=== PATIENT | male | born 1980 | race African-American/Black ===

== ENCOUNTER 2017-04-05 22:46 | Emergency (ER) | payer OTHER ==
[2017-04-05] MEDS ORDERED: SODIUM CHLORIDE 0.9% 500 ML IV STA (23:13)
[2017-04-05] MEDS ORDERED: ONDANSETRON 4 MG/2 ML VIAL IVP STA (23:13)
[2017-04-05 23:57] LABS: Basophils % (A) 0 %; CH 22.9; CHCM 31.3; Eosinophils # (A) 0.1 k/uL (0-0.7); Eosinophils % (A) 1 %; HCT 47.1 % (39.0-53.0); HDW 2.76; HGB 15.1 gm/dL (13.0-17.5); Hypochromasia Slight; Luc # (Auto) 0.15; Luc % (Auto) 2; Lymphocytes # (A) 2.2 k/uL (1.0-4.8); Lymphocytes % (A) 26 %; MCH 23.6 pg (25.0-35.0); MCV 73.8 fL (80.0-100.0); Mean Platelet Volume 6.2; Microcytosis Slight; Monocytes # (A) 0.5 k/uL (0-1.0); Monocytes % (A) 5 %; Neutrophils # (A) 5.5 k/uL (1.3-7.7); Neutrophils % (A) 65 %; RBC 6.39 m/uL (4.30-5.90); RDW 14.3 % (11.5-15.5); WBC 8.4 k/uL (3.8-10.6); WBC (Perox) 8.09
--- NOTE | 2017-04-06 00:11 | ED ---
General Adult HPI - General Chief complaint: Recheck/Abnormal Lab/Rx Stated complaint: Elevated B/P Time Seen by Provider: 04/05/17 22:55 Source: patient Mode of arrival: ambulatory Limitations: no limitations - History of Present Illness Initial comments: 36-year-old male patient presented to emergency department today for complaints of dizziness over the last few days. Patient states that whenever he goes from a sitting to standing position he becomes dizzy. States that the room spins for a moment. Patient states that he has had this in the past related to elevated blood pressure. Patient states that he hasn't had his blood pressure medications for the last few months. Says he has been nauseated and did vomit a few times today. States that he has had some blurred vision. Patient denies any headache, chest pain, shortness of breath, cough, congestion, abdominal pain , constipation, diarrhea, hematuria, dysuria, urinary urgency, urinary frequency. Denies any hematemesis, dark, bloody, or black stools. - Related Data Home Medications Medication Instructions Recorded Confirmed Lisinopril [Zestril] 5 mg PO DAILY 04/05/17 04/05/17 Previous Rx's Medication Instructions Recorded Meclizine HCl 25 mg PO Q8H #30 tablet 04/06/17 Allergies Allergy/AdvReac Type Severity Reaction Status Date / Time No Known Allergies Allergy Verified 04/05/17 22:50 Review of Systems ROS Statement: Those systems with pertinent positive or pertinent negative responses have been documented in the HPI. ROS Other: All systems not noted in ROS Statement are negative. Past Medical History Past Medical History: Asthma, Hypertension History of Any Multi-Drug Resistant Organisms: None Reported Past Surgical History: Orthopedic Surgery Past Psychological History: No Psychological Hx Reported Smoking Status: Current every day smoker Past Alcohol Use History: Occasional Past Drug Use History: None Reported General Exam Limitations: no limitations General appearance: alert, in no apparent distress Head exam: Present: atraumatic, normocephalic, normal inspection Eye exam: Present: normal appearance, PERRL, EOMI. Absent: scleral icterus, conjunctival injection, periorbital swelling ENT exam: Present: normal exam, normal oropharynx, mucous membranes moist Respiratory exam: Present: normal lung sounds bilaterally. Absent: respiratory distress, wheezes, rales, rhonchi, stridor Cardiovascular Exam: Present: regular rate, normal rhythm, normal heart sounds. Absent: systolic murmur, diastolic murmur, rubs, gallop, clicks GI/Abdominal exam: Present: soft, normal bowel sounds. Absent: distended, tenderness, guarding, rebound, rigid Neurological exam: Present: alert, oriented X3, CN II-XII intact Psychiatric exam: Present: normal affect, normal mood Skin exam: Present: warm, dry, intact, normal color. Absent: rash Course Vital Signs 04/05/17 04/06/17 04/06/17 22:48 00:01 00:48 Temperature 98.9 F Pulse Rate 105 H 68 Respiratory 18 16 Rate Blood Pressure 134/83 132/65 Blood Pressure [Sitting] Blood Pressure [Standing] Blood Pressure 142/66 [Supine] O2 Sat by Pulse 98 98 Oximetry 04/06/17 04/06/17 00:49 01:08 Temperature 98.0 F Pulse Rate 80 Respiratory 17 Rate Blood Pressure 153/80 Blood Pressure 144/70 [Sitting] Blood Pressure 144/73 [Standing] Blood Pressure 142/66 [Supine] O2 Sat by Pulse 98 Oximetry EKG Findings - EKG Comments: EKG Findings:: EKG was obtained at 2322 and did show normal sinus rhythm with a rightward axis. Ventricular rate 80, NJ interval 166, QRS duration 82, QT 346, QTC 399. No evidence of ST elevation or depression. Medical Decision Making - Medical Decision Making 36-year-old male patient presents to emergency department today for complaints of dizziness. Labs and EKG were performed and did show no acute abnormalities. Orthostatic vital signs were obtained and were negative. Patient was given IV fluids and meclizine in the department states that he is feeling better. Did question patient regarding family history of any intracranial processes, he denied any history of stroke, aneurysm, or cancers. He states he has been having difficulties with ALLERGIES and ear fullness. Patient was also concerned about his blood pressure as he has not been taking his blood pressure medications. Blood pressure while in the department remained in the 130s over 60s. Patient will be discharged home with a prescription for meclizine. Patient instructed to follow up with his primary care physician for recheck in 1 -2 days. Patient instructed to return immediately for any new, worsening, or concerning symptoms. Patient verbalizes understanding and agrees with this plan. - Lab Data Result diagrams: 04/05/17 23:39 04/05/17 23:39 Lab Results 04/05/17 04/05/17 Range/Units 23:39 23:39 WBC 8.4 (3.8-10.6) k/uL RBC 6.39 H (4.30-5.90) m/uL Hgb 15.1 (13.0-17.5) gm/dL Hct 47.1 (39.0-53.0) % MCV 73.8 L (80.0-100.0) fL MCH 23.6 L (25.0-35.0) pg MCHC 32.0 (31.0-37.0) g/dL RDW 14.3 (11.5-15.5) % Plt Count 287 (150-450) k/uL Neutrophils % 65 % Lymphocytes % 26 % Monocytes % 5 % Eosinophils % 1 % Basophils % 0 % Neutrophils # 5.5 (1.3-7.7) k/uL Lymphocytes # 2.2 (1.0-4.8) k/uL Monocytes # 0.5 (0-1.0) k/uL Eosinophils # 0.1 (0-0.7) k/uL Basophils # 0.0 (0-0.2) k/uL Hypochromasia Slight Microcytosis Slight Sodium 138 (137-145) mmol/L Potassium 4.6 (3.5-5.1) mmol/L Chloride 104 (98-107) mmol/L Carbon Dioxide 25 (22-30) mmol/L Anion Gap 9 mmol/L BUN 14 (9-20) mg/dL Creatinine 1.00 (0.66-1.25) mg/dL Est GFR (MDRD) Af Amer >60 (>60 ml/min/1.73 sqM) Est GFR (MDRD) Non-Af >60 (>60 ml/min/1.73 sqM) Glucose 89 (74-99) mg/dL Calcium 9.8 (8.4-10.2) mg/dL Magnesium 2.0 (1.6-2.3) mg/dL Total Bilirubin 0.4 (0.2-1.3) mg/dL AST 23 (17-59) U/L ALT 27 (21-72) U/L Alkaline Phosphatase 69 (38-126) U/L Total Protein 7.7 (6.3-8.2) g/dL Albumin 4.6 (3.5-5.0) g/dL Disposition Clinical Impression: Dizziness, Vertigo Disposition: HOME SELF-CARE Condition: Good Instructions: Vertigo (ED) Additional Instructions: Take medications as directed. Take [id number]-ctvulax decongestions and ALLERGY medication. Increase fluids. Follow-up with primary care physician for recheck in 1-2 days. Return immediately for any new, worsening, or concerning symptoms. Prescriptions: Meclizine HCl 25 mg PO Q8H #30 tablet Referrals: Kin Mar MD [Primary Care Provider] - 1-2 days Time of Disposition: 00:43
[2017-04-06 00:14] LABS: ALT 27 U/L (21-72); AST 23 U/L (17-59); Alkaline Phosphatase 69 U/L (38-126); Anion Gap 9 mmol/L; Blood Urea Nitrogen 14 mg/dL (9-20); Calcium 9.8 mg/dL (8.4-10.2); Carbon Dioxide 25 mmol/L (22-30); Chloride 104 mmol/L (98-107); Glucose 89 mg/dL (74-99); Non-African American GFR(MDRD) >60 (>60 ml/min/1.73 sqM); Potassium 4.6 mmol/L (3.5-5.1); Sodium 138 mmol/L (137-145); Total Bilirubin 0.4 mg/dL (0.2-1.3); Total Protein 7.7 g/dL (6.3-8.2)
[2017-04-06] MEDS ORDERED: MECLIZINE 12.5 MG TAB PO STA (00:44)
[2017-04-06 01:10] VITALS: BP 153/80; PULSE 80; RESP 17; TEMP 98
== END 2017-04-06 01:10 | disposition home or self-care (01) ==
LOC: EC 22:46
DX: R42 Dizziness and giddiness (principal); R11.0 Nausea; I10 Essential (primary) hypertension; F17.200 Nicotine dependence, unspecified, uncomplicated; Z79.899 Other long term (current) drug therapy
CPT/HCPCS: 99283; 96374; 36415; 93005; 80053; 83735; 85025; J2405

== ENCOUNTER 2017-05-18 23:43 | Emergency (ER) | payer OTHER ==
[2017-05-18 23:49] VITALS: BP 130/81; PULSE 87; RESP 19; TEMP 99
[2017-05-18] MEDS ORDERED: DIPH,PERTUS(ACELL)TETVAC-LF 0.5 ML VIAL IM ONE (23:54)
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
== END 2017-05-19 01:50 | disposition home or self-care (01) ==
LOC: EC 23:43
DX: S01.01XA Laceration without foreign body of scalp, initial encounter (principal); I10 Essential (primary) hypertension; F17.200 Nicotine dependence, unspecified, uncomplicated; Z23 Encounter for immunization; Z79.899 Other long term (current) drug therapy; W22.8XXA Striking against or struck by other objects, initial encounter
CPT/HCPCS: 12002; 70450; 90471; 90715; 99284

== ENCOUNTER 2017-12-18 14:30 | Emergency (ER) | payer OTHER ==
[2017-12-18 15:16] VITALS: RESP 18
[2017-12-18] MEDS ORDERED: IPRATROPIUM-ALBUTEROL 3 ML NEB INHALATION STA (15:39)
--- NOTE | 2017-12-18 15:42 | ED ---
SOB HPI - General Chief Complaint: Shortness of Breath Stated Complaint: asthma Time Seen by Provider: 12/18/17 15:33 Source: patient, RN notes reviewed Mode of arrival: ambulatory Limitations: no limitations - History of Present Illness Initial Comments: This is a 37-year-old male who presents to the emergency department with chief complaint of asthma attack. Patient states that he has been having some shortness of breath and cough for the past couple of days. He states that his symptoms have worsened today and he is unable to find his albuterol inhaler. Denies any fevers or chills. Denies any chest pain, abdominal pain, nausea or vomiting, diarrhea or constipation. Patient does not take any daily asthma medications. He does not have any nebulizer treatments at home. - Related Data Home Medications Medication Instructions Recorded Confirmed Lisinopril [Zestril] 5 mg PO DAILY 04/05/17 04/05/17 Previous Rx's Medication Instructions Recorded Meclizine HCl 25 mg PO Q8H #30 tablet 04/06/17 Albuterol Inhaler [Ventolin Hfa 1 - 2 puff INHALATION Q6HR PRN #1 12/18/17 Inhaler] inhaler Allergies Allergy/AdvReac Type Severity Reaction Status Date / Time No Known Allergies Allergy Verified 12/18/17 15:16 Review of Systems ROS Statement: Those systems with pertinent positive or pertinent negative responses have been documented in the HPI. ROS Other: All systems not noted in ROS Statement are negative. Past Medical History Past Medical History: Asthma, Hypertension History of Any Multi-Drug Resistant Organisms: None Reported Past Surgical History: Orthopedic Surgery Past Psychological History: No Psychological Hx Reported Smoking Status: Current every day smoker Past Alcohol Use History: Occasional Past Drug Use History: None Reported General Exam - General Exam Comments Initial Comments: General: Awake and alert, well-developed; in no apparent distress. HEENT: Head atraumatic, normocephalic. Pupils are equal, round and reactive to light. Extraocular movements intact. Oropharynx moist without erythema or exudate. Neck: Supple. Normal ROM. Cardiovascular: Regular rate and rhythm. No murmurs, rubs or gallops. Chest symmetrical. Respiratory: Normal respiratory effort with no use of accessory muscles. Diffuse wheezes throughout all lung gerard. Diminished breath sounds throughout. Musculoskeletal: Normal ROM, no tenderness bilateral upper and lower extremities. Ambulating normally. Skin: Lyndon, warm and dry without rashes or lesions. Neurological: Alert and oriented x3. CN II-XII grossly intact. Speech is fluent and answers are appropriate. No focal neuro deficits. Psychiatric: Normal mood and affect. No overt signs of depression or anxiety noted. Limitations: no limitations Course Vital Signs 12/18/17 12/18/17 12/18/17 15:14 15:55 16:07 Temperature 98.1 F Pulse Rate 77 78 80 Respiratory 18 Rate Blood Pressure 156/88 O2 Sat by Pulse 99 Oximetry - Reevaluation(s) Reevaluation #1: Patient just finished DuoNeb treatment. Lung sounds have improved and there is no more wheezing on auscultation bilaterally. Pending chest x-ray. 12/18/17 16:15 Medical Decision Making - Medical Decision Making This is a 37-year-old male who presents to the emergency department with chief complaint of asthma attack. Patient states that he has had a cough and some shortness of breath for the last couple of days but symptoms have worsened today. Patient received a DuoNeb breathing treatment and lung sounds have improved. Chest x-ray was obtained and revealed no acute abnormalities. Patient's vital signs are stable and he is in no acute distress. He will be discharged home with a prescription for an albuterol inhaler. Patient states he does not have a primary care provider to follow up with so will be provided with contact information for local primary care providers. Patient is in agreement with plan and voices understanding. All questions were answered. - Radiology Data Radiology results: report reviewed, image reviewed Chest x-ray impression: No acute cardiopulmonary process. Disposition Clinical Impression: Asthma with exacerbation Disposition: HOME SELF-CARE Condition: Good Instructions: Asthma (ED) Additional Instructions: Please take medications as prescribed. Please follow up with primary care provider within 1-2 days. Return to emergency department if symptoms should worsen or any concerns arise. Prescriptions: Albuterol Inhaler [Ventolin Hfa Inhaler] 1 - 2 puff INHALATION Q6HR PRN #1 inhaler PRN Reason: Wheezing Is patient prescribed a controlled substance at d/c from ED?: No Referrals: None,Stated [Primary Care Provider] - 1-2 days Alondra Aparicio MD [STAFF PHYSICIAN] - 1-2 days Luis Carlos Clinton MD [STAFF PHYSICIAN] - 1-2 days Carmel Magdaleno MD [STAFF PHYSICIAN] - 1-2 days Time of Disposition: 16:34
--- NOTE | 2017-12-18 16:25 | XR ---
EXAMINATION TYPE: XR chest 2V DATE OF EXAM: 12/18/2017 COMPARISON: 07/15/2012 HISTORY: Asthma and shortness of breath TECHNIQUE: Frontal and lateral views of the chest are obtained. FINDINGS: There is no focal air space opacity, pleural effusion, or pneumothorax seen. The cardiac silhouette size is within normal limits. The osseous structures are intact. IMPRESSION: No acute cardiopulmonary process.
[2017-12-18 16:50] VITALS: BP 143/95; PULSE 76; TEMP 98.6
== END 2017-12-18 16:49 | disposition home or self-care (01) ==
LOC: EC 14:30
DX: J45.901 Unspecified asthma with (acute) exacerbation (principal); I10 Essential (primary) hypertension; F17.200 Nicotine dependence, unspecified, uncomplicated; Z79.899 Other long term (current) drug therapy
CPT/HCPCS: 71046; 94640; 99285

== ENCOUNTER 2018-05-02 23:14 | Emergency (ER) | payer OTHER ==
[2018-05-02] MEDS ORDERED: ALBUTEROL NEBULIZED 2.5 MG/3 ML INHALATION STA (23:41)
[2018-05-02] MEDS ORDERED: IPRATROPIUM-ALBUTEROL 3 ML NEB INHALATION STA (23:41)
[2018-05-02] MEDS ORDERED: DEXAMETHASONE SOD PHOSPHATE 10 MG/ML 1 ML VIAL IM STA (23:41)
--- NOTE | 2018-05-02 23:41 | ED ---
General Adult HPI - General Chief complaint: Shortness of Breath Stated complaint: asthma Time Seen by Provider: 05/02/18 23:37 Source: patient, RN notes reviewed, old records reviewed Mode of arrival: ambulatory Limitations: no limitations - History of Present Illness Initial comments: 37 yo male presents for evaluation of cough and dyspnea. Patient has history of asthma. He states for the past one month he's been using his inhaler approximately 3 times daily. Patient had some worsening dyspnea which began approximately 2 hours prior to arrival, he attempted to use his albuterol inhaler but was unable to locate his inhaler. He states his cough has been productive of yellow sputum. Denies fever or chills. Denies chest pain. Denies abdominal pain. No other significant past medical history. - Related Data Previous Rx's Medication Instructions Recorded Albuterol Inhaler [Ventolin Hfa 1 - 2 puff INHALATION Q4HR PRN #1 05/02/18 Inhaler] inhaler predniSONE 50 mg PO DAILY #5 tab 05/02/18 Allergies Allergy/AdvReac Type Severity Reaction Status Date / Time No Known Allergies Allergy Verified 05/02/18 23:42 Review of Systems ROS Statement: Those systems with pertinent positive or pertinent negative responses have been documented in the HPI. ROS Other: All systems not noted in ROS Statement are negative. Past Medical History Past Medical History: Asthma, Hypertension History of Any Multi-Drug Resistant Organisms: None Reported Past Surgical History: Orthopedic Surgery Past Psychological History: No Psychological Hx Reported Smoking Status: Current some day smoker Past Alcohol Use History: Occasional Past Drug Use History: None Reported General Exam Limitations: no limitations General appearance: alert, in no apparent distress Head exam: Present: atraumatic, normocephalic Eye exam: Present: normal appearance, PERRL, EOMI ENT exam: Present: normal exam Neck exam: Present: normal inspection. Absent: tenderness, meningismus Respiratory exam: Present: normal lung sounds bilaterally, wheezes, decreased breath sounds Cardiovascular Exam: Present: regular rate, normal rhythm GI/Abdominal exam: Present: soft. Absent: distended, tenderness Extremities exam: Present: normal inspection, normal capillary refill. Absent: pedal edema Neurological exam: Present: alert, oriented X3, CN II-XII intact. Absent: motor sensory deficit Psychiatric exam: Present: normal affect, normal mood Skin exam: Present: warm, dry, intact. Absent: cyanosis, diaphoretic Course Vital Signs 05/02/18 23:16 Temperature 98.5 F Pulse Rate 86 Respiratory 20 Rate Blood Pressure 129/73 O2 Sat by Pulse 97 Oximetry - Reevaluation(s) Reevaluation #1: 05/02/18 0015 On reevaluation, patient is feeling better after nebulized albuterol. Medical Decision Making - Medical Decision Making 37-year-old male presenting with asthma exacerbation. Chest x-ray obtained for history of productive cough, negative for focal pneumonia. Patient given steroids, albuterol, and Atrovent in the emergency department. He will be discharged home with short course of oral steroids and refill of his albuterol inhaler. He will return with worsening or changing symptoms. Disposition Clinical Impression: Asthma with exacerbation Disposition: HOME SELF-CARE Condition: Good Instructions: Asthma (ED) Prescriptions: Albuterol Inhaler [Ventolin Hfa Inhaler] 1 - 2 puff INHALATION Q4HR PRN #1 inhaler PRN Reason: Shortness Of Breath predniSONE 50 mg PO DAILY #5 tab Is patient prescribed a controlled substance at d/c from ED?: No Referrals: None,Stated [Primary Care Provider] - 1-2 days
--- NOTE | 2018-05-03 00:27 | XR ---
EXAMINATION TYPE: XR chest 2V DATE OF EXAM: 05/03/2018 COMPARISON: 12/18/2017 HISTORY: Asthma. Short of breath TECHNIQUE: Frontal and lateral views of the chest are obtained. FINDINGS: Heart and mediastinum are normal. Lungs are clear. Diaphragm is normal. Bony thorax is int act. IMPRESSION: Normal chest. No change.
[2018-05-03 01:34] VITALS: BP 150/74; PULSE 78; RESP 18; TEMP 98.2
== END 2018-05-03 01:33 | disposition home or self-care (01) ==
LOC: EC 23:14
DX: J45.901 Unspecified asthma with (acute) exacerbation (principal); F17.200 Nicotine dependence, unspecified, uncomplicated
CPT/HCPCS: 71046; 94640; 96372; 99285

== ENCOUNTER 2018-07-03 19:53 | Emergency (ER) | payer OTHER ==
[2018-07-03 19:59] VITALS: BP 138/79; RESP 16; TEMP 97.6
[2018-07-03] MEDS ORDERED: predniSONE 50 MG TAB PO STA (20:35)
[2018-07-03] MEDS ORDERED: ALBUTEROL NEBULIZED 2.5 MG/3 ML INHALATION STA (20:35)
[2018-07-03 20:55] VITALS: PULSE 84
--- NOTE | 2018-07-03 20:57 | XR ---
EXAMINATION: XR chest 2V DATE AND TIME: 07/03/2018 8:44 PM CLINICAL INDICATION: Pain TECHNIQUE: PA and lateral COMPARISON: 05/03/2018 FINDINGS: The lungs are clear. The pleural spaces are negative. The cardiac silhouette is not enlarged. The remainder of the mediastinal silhouette is unremarkable. The skeletal structures and soft tissues are negative for acute findings. IMPRESSION: NO ACUTE PROCESS.
--- NOTE | 2018-07-03 21:13 | ED ---
URI HPI - General Chief Complaint: Upper Respiratory Infection Stated Complaint: cough, vomiting Time Seen by Provider: 07/03/18 20:01 Source: patient, RN notes reviewed, old records reviewed Mode of arrival: ambulatory Limitations: no limitations - History of Present Illness Initial Comments: This Patient is a 37-year-old male presenting to the emergency department today with chief complaint of cough congestion and coughing to the point of vomiting. Patient states that he has no abdominal pain. Symptoms going on for the past few days. He denies any fevers or chills. He is a smoker.Patient denies any recent fever, chills, back pain, abdominal pain, nausea vomiting, numbness or tingling, dysuria or hematuria, constipation or diarrhea, headaches or visual changes, or any other current symptoms - Related Data Previous Rx's Medication Instructions Recorded Albuterol Inhaler [Ventolin Hfa 1 - 2 puff INHALATION Q4HR PRN #1 05/02/18 Inhaler] inhaler Ondansetron Odt [Zofran Odt] 4 mg PO Q8HR PRN #12 tab 07/03/18 predniSONE 50 mg PO DAILY #5 tablet 07/03/18 Allergies Allergy/AdvReac Type Severity Reaction Status Date / Time No Known Allergies Allergy Verified 07/03/18 19:59 Review of Systems ROS Statement: Those systems with pertinent positive or pertinent negative responses have been documented in the HPI. ROS Other: All systems not noted in ROS Statement are negative. Past Medical History Past Medical History: Asthma, Hypertension History of Any Multi-Drug Resistant Organisms: None Reported Past Surgical History: Orthopedic Surgery Additional Past Surgical History / Comment(s): tendon repair right hand. Past Psychological History: No Psychological Hx Reported Smoking Status: Current some day smoker Past Alcohol Use History: Occasional Past Drug Use History: None Reported General Exam - General Exam Comments Initial Comments: Well-appearing 37-year-old male. -[place]. No acute distress. General: Well appearing, well nourished, in no distress. Oriented x 3, normal mood and affect . Ambulating without difficulty. Skin: Good turgor, no rash, unusual bruising or prominent lesions Hair: Normal texture and distribution. HEENT: Head: Normocephalic, atraumatic, no visible or palpable masses, depressions, or scaring. Eyes: Visual acuity intact, conjunctiva clear, sclera non-icteric, EOM intact, PERRL. Ears: EACs clear, TMs translucent & cone of light visualized. hearing intact. Nose: No external lesions, mucosa non-inflamed, septum and turbinates normal Mouth: Mucous membranes moist, no mucosal lesions. Teeth/Gums: No obvious caries or periodontal disease. No gingival inflammation or significant resorption. Pharynx: Mucosa non-inflamed, no tonsillar hypertrophy or exudate Neck: Supple, without lesions, bruits, or adenopathy, thyroid non-enlarged and non-tender Heart: No cardiomegaly or thrills; regular rate and rhythm, no murmur or gallop Lungs: Slight wheezing noted. No rhonchi. Lung sounds are equal in all lung gerard. Abdomen: Bowel sounds normal, no tenderness, organomegaly, masses, or hernia Back: Spine normal without deformity or tenderness, no CVA tenderness Musculoskeletal: Normal gait and station. No misalignment, asymmetry, crepitation, defects, tenderness, masses, effusions, decreased range of motion, instability, atrophy or abnormal strength or tone in the head, neck, spine, ribs , pelvis or extremities. Neurologic: CN 2-12 normal. Sensation to pain, touch, and proprioception normal. DTRs normal in upper and lower extremities. No pathologic reflexes. Psychiatric: Oriented X3, intact recent and remote memory, judgment and insight , normal mood and affect. Limitations: no limitations Course Vital Signs 07/03/18 07/03/18 07/03/18 19:55 20:48 20:54 Temperature 97.6 F Pulse Rate 79 80 84 Respiratory 16 Rate Blood Pressure 138/79 O2 Sat by Pulse 100 Oximetry Medical Decision Making - Medical Decision Making 37-year-old male presents today with chief complaint of cough congestion and vomiting episodes. He otherwise appears well. He came here for work. At this time his lungs do have some slight wheeze. Is given a breathing treatment has improvement. His chest x-ray today is negative for any acute process. Discussed close follow-up with primary care physician. Discussed return parameters. We'll discharge him with steroids for bronchitis as well as Zofran. Patient agrees to treatment plan - Radiology Data Radiology results: report reviewed Normal chest x-ray Disposition Clinical Impression: Bronchitis Disposition: HOME SELF-CARE Condition: Good Instructions: Upper Respiratory Infection (ED) Additional Instructions: Patient advised to follow-up with PCP. Return to emergency department if any alarming signs or symptoms occur. Prescriptions: Ondansetron Odt [Zofran Odt] 4 mg PO Q8HR PRN #12 tab PRN Reason: Nausea predniSONE 50 mg PO DAILY #5 tablet Is patient prescribed a controlled substance at d/c from ED?: No Referrals: None,Stated [Primary Care Provider] - 1-2 days Alondra Aparicio MD [STAFF PHYSICIAN] - 1-2 days Time of Disposition: 21:11
== END 2018-07-03 21:15 | disposition home or self-care (01) ==
LOC: EC 19:53
DX: J40 Bronchitis, not specified as acute or chronic (principal); F17.200 Nicotine dependence, unspecified, uncomplicated
CPT/HCPCS: 94640; 71046; 99284; J7512

== ENCOUNTER 2018-09-03 15:26 | Emergency (ER) | payer BC ==
[2018-09-03 15:32] VITALS: RESP 18
[2018-09-03] MEDS ORDERED: methylPREDNISolone SOD SUCCI 125 MG/2 ML VIAL IM ONE (15:43)
[2018-09-03] MEDS: IPRATROPIUM-ALBUTEROL 3 ML NEB INHALATION STA ×2 (15:52→16:20)
--- NOTE | 2018-09-03 16:03 | XR ---
EXAMINATION TYPE: XR chest 2V DATE OF EXAM: 09/03/2018 COMPARISON: 07/03/2018 HISTORY: 38-year-old male with pain TECHNIQUE: PA and lateral views FINDINGS: The cardiomediastinal silhouette, aorta, and pulmonary vasculature are within normal limits. The late ral view shows some central peribronchial cuffing. Some hazy density at the mid to lower lungs placed overlying soft tissue. No consolidation or pleural effusion. IMPRESSION: Some peribronchial cuffing apparent on the lateral view. Findings suggest bronchitis or asthma. No fo xander infiltrate to suggest pneumonia at this time.
[2018-09-03] MEDS ORDERED: IPRATROPIUM-ALBUTEROL 3 ML NEB INHALATION STA (17:03)
--- NOTE | 2018-09-03 17:07 | ED ---
URI HPI - General Chief Complaint: Upper Respiratory Infection Stated Complaint: SOB Time Seen by Provider: 09/03/18 15:34 Source: patient Mode of arrival: ambulatory Limitations: no limitations - History of Present Illness Initial Comments: 38-year-old male with past medical history of asthma presenting today for cough , congestion and wheezing. Patient states that he has had increasing wheezing for the past 2-3 days, with upper respiratory symptoms of cough and congestion. Patient states he present to the [facility] yesterday where he was administered a breathing treatment and discharge with oral steroids. Patient states she did have an rescue inhaler at home however this is now empty. Patient states he noticed he felt tight in the chest and wheezy today identical in comparison to previous asthma exacerbations. Patient states he has not had an issue with his asthma for the last 10 years, he states when he was younger as a child he did have a previous hospitalization and intubation, however he states this was only one time. Patient denies any recent hospitalizations or increased use of rescue inhaler prior to the past 2-3 days. Patient states he does not have a primary care provider and has been receiving his inhalers from emergency departments. Remainder of ROS negative, patient denies any fever, chills, bodyaches, sore throat, ear pain, chest pain, dyspnea, dyspnea on exertion, nausea, vomiting, abdominal pain, diarrhea, vomiting or any other associated symptoms. Upon arrival patient appears well, there is no signs of respiratory distress or audible wheeze/stridor. Patient oxygenating well and room air. - Related Data Previous Rx's Medication Instructions Recorded Albuterol Inhaler [Ventolin Hfa 1 - 2 puff INHALATION Q4HR PRN #1 05/02/18 Inhaler] inhaler Ondansetron Odt [Zofran Odt] 4 mg PO Q8HR PRN #12 tab 07/03/18 predniSONE 50 mg PO DAILY #5 tablet 07/03/18 Albuterol Inhaler [Ventolin Hfa 1 - 2 puff INHALATION Q4H PRN 30 09/03/18 Inhaler] Days #1 inhaler Allergies Allergy/AdvReac Type Severity Reaction Status Date / Time No Known Allergies Allergy Verified 09/03/18 15:32 Review of Systems ROS Statement: Those systems with pertinent positive or pertinent negative responses have been documented in the HPI. ROS Other: All systems not noted in ROS Statement are negative. Past Medical History Past Medical History: Asthma, Hypertension History of Any Multi-Drug Resistant Organisms: None Reported Past Surgical History: Orthopedic Surgery Additional Past Surgical History / Comment(s): tendon repair right hand. Past Psychological History: No Psychological Hx Reported Smoking Status: Current some day smoker Past Alcohol Use History: Occasional Past Drug Use History: None Reported General Exam - General Exam Comments Initial Comments: General: The patient is awake and alert, in no distress, and does not appear acutely ill. Eye: +3 mm pupils are equal, round and reactive to light, extra-ocular movements are intact. No nystagmus. There is normal conjunctiva bilaterally. No signs of icterus. Ears, nose, mouth and throat: There are moist mucous membranes and no oral lesions. Oropharynx non-erythematous or tonsillar enlargement or exudates or lesions. TM and EAC within normal limits bilaterally. Uvula midline. Neck: The neck is supple, there is no tenderness or JVD. Cardiovascular: There is a regular rate and rhythm. No murmur, rub or gallop is appreciated. Respiratory: Respirations are non-labored, breath sounds are equal. No stridor , rales, or rhonchi. Moderate expiratory wheeze. Abdominal breathing, use of accessory muscles or retractions. No cyanosis. No evidence of respiratory distress. Gastrointestinal: Soft, non-distended, non-tender abdomen without masses or organomegaly noted. There is no rebound or guarding present. Musculoskeletal: Normal ROM, no tenderness. Strength 5/5. Sensation intact. Radial pulses equal bilaterally 2+. Neurological: A&O x 3. CN II-XII intact, There are no obvious motor or sensory deficits. Coordination appears grossly intact. Speech is normal. Skin: Skin is warm and dry and no rashes or lesions are noted. Psychiatric: Cooperative, appropriate mood & affect, normal judgment. Limitations: no limitations Course Vital Signs 09/03/18 09/03/18 09/03/18 15:31 16:00 16:18 Temperature 98.5 F Pulse Rate 98 85 Respiratory 18 20 18 Rate Blood Pressure 124/86 O2 Sat by Pulse 96 97 Oximetry 09/03/18 09/03/18 09/03/18 16:23 17:18 17:36 Temperature Pulse Rate 85 76 80 Respiratory Rate Blood Pressure O2 Sat by Pulse Oximetry 09/03/18 17:55 Temperature 99.1 F Pulse Rate 91 Respiratory 18 Rate Blood Pressure 155/78 O2 Sat by Pulse 96 Oximetry - Reevaluation(s) Reevaluation #1: 09/03/18 17:06 Upon reevaluation, pt stating he is feeling much better. Very mild expiratory wheeze on exam. Will repeat Duoneb and re-evaluate. 09/03/18 17:06 Reevaluation #2: Re-evaluated pt after second breathing treatment. Resolution of wheezing. Pt states feel 100x better. Pt requesting discharge. Pt given spacer for outpatient albuterol inhaler. Pt instructed to continue PO steroids as prescribed by [facility]. 09/03/18 17:52 Medical Decision Making - Medical Decision Making 38-year-old with past medical history of asthma. Patient states identical to previous asthma exacerbations. Patient does have upper respiratory symptoms such as cough and congestion in addition to wheezing. Physical examination revealed moderate extremities on exam. Patient given 2 DuoNeb treatments which she states significantly improved symptomology. Complete resolution of extra wheeze. Patient oxygen well on room air, appearing well there are no signs of respiratory distress. Chest x-ray negative for focal consolidations concerning for pneumonia. Influenza testing negative. At this time I do feel patient has mild asthma exacerbation most likely brought on by viral upper respiratory infection. Patient is prescribed current oral steroids. Patient is out of his rescue inhaler. Patient be prescribed an albuterol inhaler, patient was given spacer in the emergency department. At this time patient states he feels stable for discharge with primary care follow-up. I did give patient 2 referrals for different primary care providers for further outpatient management of asthma, and help management patient is agreeable plan and discharged. Return parameters were discussed at length with patient prior to discharge. I did discuss the case with attending provider Dr. Zavala prior to patient's discharge who agrees with impression and plan. - Lab Data Lab Results 09/03/18 Range/Units 15:54 Influenza Type A RNA Not Detected (Not Detectd) Influenza Type B (PCR) Not Detected (Not Detectd) Disposition Clinical Impression: Viral upper respiratory tract infection with cough, Asthma Disposition: HOME SELF-CARE Condition: Good Instructions (If sedation given, give patient instructions): Asthma (ED), Upper Respiratory Infection (ED) Additional Instructions: Please use medication as discussed. Please continue previously prescribed steroids as discussed. Please follow-up with family doctor in the next 2 days. Please return to emergency room if the symptoms increase or worsen or for any other concerns. Prescriptions: Albuterol Inhaler [Ventolin Hfa Inhaler] 1 - 2 puff INHALATION Q4H PRN 30 Days # 1 inhaler PRN Reason: wheeze Is patient prescribed a controlled substance at d/c from ED?: No Referrals: None,Stated [Primary Care Provider] - 1-2 days [facility] [NON[facility]] - 1-2 days Jocelynn Rivero MD [STAFF PHYSICIAN] - 1-2 days Time of Disposition: 17:36
[2018-09-03 17:56] VITALS: BP 155/78; PULSE 91; TEMP 99.1
== END 2018-09-03 17:55 | disposition home or self-care (01) ==
LOC: EC 15:26
DX: J45.909 Unspecified asthma, uncomplicated (principal); J06.9 Acute upper respiratory infection, unspecified; F17.200 Nicotine dependence, unspecified, uncomplicated
CPT/HCPCS: 94640; 87502; 71046; 99285; 96372; J2930

== ENCOUNTER 2018-12-07 00:30 | Emergency (ER) | payer BC ==
[2018-12-07] MEDS ORDERED: ALBUTEROL NEBULIZED (CONC) 5 MG, SODIUM CHLORIDE 0.9% NEBULIZ 3 ML INHALATION STA ×2 (01:02)
[2018-12-07] MEDS ORDERED: methylPREDNISolone SOD SUCCI 125 MG/2 ML VIAL IV STA (01:02)
[2018-12-07] MEDS ORDERED: ALBUTEROL NEBULIZED 2.5 MG/3 ML INHALATION STA ×2 (01:34→02:00)
--- NOTE | 2018-12-07 02:00 | XR ---
EXAM: XR Chest, 2 Views CLINICAL HISTORY: Pain. TECHNIQUE: Frontal and lateral views of the chest. COMPARISON: No relevant prior studies available. FINDINGS: Lungs: No focal consolidation. No evidence of pulmonary edema. Pleural space: No pleural effusion. No pneumothorax. Heart: Unremarkable. No cardiomegaly. Mediastinum: Unremarkable. Bones/joints: Unremarkable. IMPRESSION: Normal chest x-rays.
--- NOTE | 2018-12-07 03:08 | ED ---
SOB HPI - General Chief Complaint: Shortness of Breath Stated Complaint: Difficulty Breathing Time Seen by Provider: 12/07/18 00:56 Source: patient Mode of arrival: ambulatory Limitations: no limitations - History of Present Illness Initial Comments: 38-year-old male past medical history of asthma presenting today for asthma exacerbation. Patient states his chest is tight when he presents identical to when he had previous asthma exacerbations the past. Patient states one time when he had pneumonia he had a be intubated due to asthma exacerbation. Patient denies any chest pain, shortness of breath that appears unusual, back pain, leg swelling, nausea and vomiting of gout pain, diaphoresis. Remaining review of systems negative. Upon arrival patient appears well no signs of acute distress. Oxygen saturation 96% on room air. - Related Data Previous Rx's Medication Instructions Recorded Albuterol Inhaler [Ventolin Hfa 1 - 2 puff INHALATION Q4HR PRN #1 05/02/18 Inhaler] inhaler Ondansetron Odt [Zofran Odt] 4 mg PO Q8HR PRN #12 tab 07/03/18 predniSONE 50 mg PO DAILY #5 tablet 07/03/18 Albuterol Inhaler [Ventolin Hfa 1 - 2 puff INHALATION Q4H PRN 30 09/03/18 Inhaler] Days #1 inhaler Albuterol Inhaler [Ventolin Hfa 1 - 2 puff INHALATION RT-Q6H PRN 7 12/07/18 Inhaler] Days #1 inhaler Allergies Allergy/AdvReac Type Severity Reaction Status Date / Time No Known Allergies Allergy Verified 12/07/18 00:36 Review of Systems ROS Statement: Those systems with pertinent positive or pertinent negative responses have been documented in the HPI. ROS Other: All systems not noted in ROS Statement are negative. Past Medical History Past Medical History: Asthma, Hypertension History of Any Multi-Drug Resistant Organisms: None Reported Past Surgical History: Orthopedic Surgery Additional Past Surgical History / Comment(s): tendon repair right hand. Past Psychological History: No Psychological Hx Reported Smoking Status: Current every day smoker Past Alcohol Use History: Occasional Past Drug Use History: None Reported General Exam - General Exam Comments Initial Comments: General: The patient is awake and alert, in no distress, and does not appear acutely ill. Eye: Pupils are equal, round and reactive to light, extra-ocular movements are intact. No nystagmus. There is normal conjunctiva bilaterally. No signs of icterus. Ears, nose, mouth and throat: There are moist mucous membranes and no oral lesions. Neck: The neck is supple, there is no tenderness or JVD. Cardiovascular: There is a regular rate and rhythm. No murmur, rub or gallop is appreciated. Respiratory: Respirations are non-labored, breath sounds are equal. No stridor, rales, or rhonchi. Expiratory wheeze on exam, no retractions abdominal breathing cyanosis. Gastrointestinal: Soft, non-distended, non-tender abdomen without masses or organomegaly noted. There is no rebound or guarding present. No CVA tenderness. Bowel sounds are unremarkable. Musculoskeletal: Normal ROM, no tenderness. Strength 5/5. Sensation intact. Pulses equal bilaterally 2+. Neurological: A&O x 3. CN II-XII intact, There are no obvious motor or sensory deficits. Coordination appears grossly intact. Speech is normal. Skin: Skin is warm and dry and no rashes or lesions are noted. Psychiatric: Cooperative, appropriate mood & affect, normal judgment. Limitations: no limitations Course Vital Signs 12/07/18 12/07/18 12/07/18 00:34 00:54 01:39 Temperature 98.6 F Pulse Rate 84 78 Respiratory 18 18 16 Rate Blood Pressure 129/84 O2 Sat by Pulse 96 Oximetry 12/07/18 12/07/18 12/07/18 01:51 02:24 02:31 Temperature Pulse Rate 82 86 80 Respiratory Rate Blood Pressure O2 Sat by Pulse Oximetry 12/07/18 03:14 Temperature 97.9 F Pulse Rate 88 Respiratory 18 Rate Blood Pressure 158/70 O2 Sat by Pulse 98 Oximetry Medical Decision Making - Medical Decision Making Asthma exacerbation. Patient states his symptoms are identical to when he's had an asthma exacerbation the past. Patient does not appear overtly short of breath. Saturating well on room air. Mild expiratory wheeze. Patient was given 2 albuterol treatments. Patient states he has significant improvement of symptoms. Expiratory wheezes alleviated with 2 treatments. States he is ready to go home. Patient left prior to receiving discharge paperwork. Patient was provided with no prior. My final disposition was discharge prior to patient leaving before final examination. Disposition Clinical Impression: Asthma exacerbation Disposition: HOME SELF-CARE Condition: Good Instructions (If sedation given, give patient instructions): Asthma (ED) Additional Instructions: Please use medication as discussed. Please follow-up with family doctor in the next 2 days. Please return to emergency room if the symptoms increase or worsen or for any other concerns. Prescriptions: Albuterol Inhaler [Ventolin Hfa Inhaler] 1 - 2 puff INHALATION RT-Q6H PRN 7 Days #1 inhaler PRN Reason: Wheezing Is patient prescribed a controlled substance at d/c from ED?: No Referrals: Kin Mar MD [Primary Care Provider] - 1-2 days Time of Disposition: 03:08
[2018-12-07 03:15] VITALS: BP 158/70; PULSE 88; RESP 18; TEMP 97.9
== END 2018-12-07 03:15 | disposition home or self-care (01) ==
LOC: EC 00:30
DX: J45.901 Unspecified asthma with (acute) exacerbation (principal); F17.200 Nicotine dependence, unspecified, uncomplicated; Z87.01 Personal history of pneumonia (recurrent)
CPT/HCPCS: 71046; 96374; 99285

== ENCOUNTER 2019-02-23 03:52 | Emergency (ER) | payer BC, OTHER ==
[2019-02-23 04:03] VITALS: BP 127/79; PULSE 84; RESP 16; TEMP 97.5
[2019-02-23] MEDS ORDERED: FLUORESCEIN STRIPS 1 MG STRIP LEFT EYE ONE (04:08)
[2019-02-23] MEDS ORDERED: PROPARACAINE 0.5% OPHTH DROPS 15 ML BTL LEFT EYE STA (04:08)
[2019-02-23] MEDS ORDERED: PROPARACAINE 0.5% OPHTH DROPS 15 ML BTL BOTH EYES STA (04:08)
[2019-02-23] MEDS ORDERED: ERYTHROMYCIN 5 MG/GM OPHTH OINT 3.5 GM TUBE BOTH EYES STA (04:38)
[2019-02-23] MEDS ORDERED: KETOROLAC 30 MG/ML 1 ML VIAL IM STA (04:40)
--- NOTE | 2019-02-23 04:42 | ED ---
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 Patient denies other injuries. - Related Data Previous Rx's Medication Instructions Recorded Albuterol Inhaler [Ventolin Hfa 1 - 2 puff INHALATION Q4HR PRN #1 05/02/18 Inhaler] inhaler Ondansetron Odt [Zofran Odt] 4 mg PO Q8HR PRN #12 tab 07/03/18 predniSONE 50 mg PO DAILY #5 tablet 07/03/18 Albuterol Inhaler [Ventolin Hfa 1 - 2 puff INHALATION Q4H PRN 30 09/03/18 Inhaler] Days #1 inhaler Albuterol Inhaler [Ventolin Hfa 1 - 2 puff INHALATION RT-Q6H PRN 7 12/07/18 Inhaler] Days #1 inhaler Allergies Allergy/AdvReac Type Severity Reaction Status Date / Time No Known Allergies Allergy Verified 02/23/19 04:03 Review of Systems ROS Statement: Those systems with pertinent positive or pertinent negative responses have been documented in the HPI. ROS Other: All systems not noted in ROS Statement are negative. Past Medical History Past Medical History: Asthma, Hypertension History of Any Multi-Drug Resistant Organisms: None Reported Past Surgical History: Orthopedic Surgery Additional Past Surgical History / Comment(s): tendon repair right hand. Past Psychological History: No Psychological Hx Reported Smoking Status: Current every day smoker Past Alcohol Use History: Rare Past Drug Use History: None Reported General Exam - General Exam Comments Initial Comments: Physical Exam GENERAL: Patient was sleeping upon evaluation HENT: Normocephalic, Atraumatic. EYES: PERRL, EOMI Conjunctival injection Exam reveals no obvious corneal abrasion, negative Satya sign, no foreign body PULMONARY: Unlabored respirations CARDIOVASCULAR: RRR ABDOMEN: Soft and nontender with normal bowel sounds. SKIN: Skin is clear with no lesions or rashes and otherwise unremarkable. : Deferred NEUROLOGIC: Patient is alert and oriented x3. Moving all extremities spontaneously MUSCULOSKELETAL: Normal extremities with adequate strength and full range of motion. No lower extremity swelling or edema. No calf tenderness. PSYCHIATRIC: Normal psychiatric evaluation Limitations: no limitations Course Vital Signs 02/23/19 03:58 Temperature 97.5 F L Pulse Rate 84 Respiratory 16 Rate Blood Pressure 127/79 O2 Sat by Pulse 98 Oximetry Medical Decision Making - Medical Decision Making The patient was seen and evaluated history and physical exam are consistent with boilermaker welder's keratitis Patient we given IM Toradol, advised to maintain high rest, use eye protection, try to stay inside for the remainder of the weekend. Work where appropriate eye protection when returning to work Disposition Clinical Impression: Welders' keratitis Disposition: HOME SELF-CARE Condition: Stable Instructions (If sedation given, give patient instructions): Eye Lubricant (Into the eye) Is patient prescribed a controlled substance at d/c from ED?: No Referrals: Kin Mar MD [Primary Care Provider] - 1-2 days
[2019-02-23] MEDS ORDERED: ERYTHROMYCIN 5 MG/GM OPHTH OINT 3.5 GM TUBE BOTH EYES SCH (06:00)
== END 2019-02-23 04:59 | disposition home or self-care (01) ==
LOC: EC 03:52
DX: H16.133 Photokeratitis, bilateral (principal); F17.200 Nicotine dependence, unspecified, uncomplicated
CPT/HCPCS: 99283; 96372; J1885

== ENCOUNTER 2019-03-07 20:46 | Emergency (ER) | payer BC, OTHER ==
[2019-03-07 21:00] VITALS: BP 137/78; PULSE 90; RESP 16; TEMP 97.4
[2019-03-07] MEDS ORDERED: PROPARACAINE 0.5% OPHTH DROPS 15 ML BTL LEFT EYE STA (21:08)
--- NOTE | 2019-03-07 22:44 | ED ---
Eye Problem HPI - General Source: patient, family Mode of arrival: ambulatory Limitations: no limitations <Cas Carter - Last Filed: 03/08/19 00:30> <Bette Duggan P - Last Filed: 03/08/19 13:21> - General Chief complaint: Eye Problems Stated complaint: Welding flash Time Seen by Provider: 03/07/19 21:08 - History of Present Illness Initial comments: Patient is a 38-year-old male presenting to emergency Department with bilateral eye pain. Patient reports he was in the emergency department approximately one week ago for the same reason. 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 Patient reports after he came back from work today she developed the eye pain that is constant and rates it an 8. Patient reports he has difficulty opening his eyes. Patient reports bilateral conjunctival injections. Patient reports tearing but denies pruritus. Patient reports applying artificial tear ointment with minimal improvement. (Cas Carter) - Related Data Previous Rx's Medication Instructions Recorded Albuterol Inhaler [Ventolin Hfa 1 - 2 puff INHALATION Q4HR PRN #1 05/02/18 Inhaler] inhaler Ondansetron Odt [Zofran Odt] 4 mg PO Q8HR PRN #12 tab 07/03/18 predniSONE 50 mg PO DAILY #5 tablet 07/03/18 Albuterol Inhaler [Ventolin Hfa 1 - 2 puff INHALATION Q4H PRN 30 09/03/18 Inhaler] Days #1 inhaler Albuterol Inhaler [Ventolin Hfa 1 - 2 puff INHALATION RT-Q6H PRN 7 12/07/18 Inhaler] Days #1 inhaler Artificial Tears-Hypromellose 1 drops BOTH EYES TID #1 bottle 03/07/19 [Artificial Tear Drops] Allergies Allergy/AdvReac Type Severity Reaction Status Date / Time No Known Allergies Allergy Verified 03/07/19 20:57 Review of Systems ROS Other: All systems not noted in ROS Statement are negative. <Cas Carter - Last Filed: 03/08/19 00:30> ROS Other: All systems not noted in ROS Statement are negative. <Bette Duggan P - Last Filed: 03/08/19 13:21> ROS Statement: Those systems with pertinent positive or pertinent negative responses have been documented in the HPI. Past Medical History Past Medical History: Asthma, Hypertension History of Any Multi-Drug Resistant Organisms: None Reported Past Surgical History: Orthopedic Surgery Additional Past Surgical History / Comment(s): tendon repair right hand. Past Psychological History: No Psychological Hx Reported Smoking Status: Current every day smoker Past Alcohol Use History: Rare Past Drug Use History: None Reported <Cas Carter - Last Filed: 03/08/19 00:30> General Exam Limitations: no limitations General appearance: alert, in no apparent distress Head exam: Present: atraumatic, normocephalic, normal inspection Eye exam: Present: normal appearance, PERRL, EOMI, conjunctival injection (Bilateral). Absent: nystagmus, periorbital swelling, periorbital tenderness Pupils: Present: normal accommodation. Absent: unequal ENT exam: Present: normal exam, normal oropharynx, mucous membranes moist, TM's normal bilaterally, normal external ear exam Neck exam: Present: normal inspection, full ROM Respiratory exam: Present: normal lung sounds bilaterally Cardiovascular Exam: Present: regular rate, normal rhythm, normal heart sounds Extremities exam: Present: normal inspection, full ROM Back exam: Present: normal inspection, full ROM Neurological exam: Present: alert, oriented X3 Psychiatric exam: Present: normal affect, normal mood Skin exam: Present: warm, intact, normal color <Cas Carter - Last Filed: 03/08/19 00:30> Course Vital Signs 03/07/19 20:57 Temperature 97.4 F L Pulse Rate 90 Respiratory 16 Rate Blood Pressure 137/78 O2 Sat by Pulse 98 Oximetry Medical Decision Making <Cas Carter - Last Filed: 03/08/19 00:30> <Bette Duggan - Last Filed: 03/08/19 13:21> - Medical Decision Making Patient is a 38-year-old male presenting to emergency Department with bilateral eye pain. Proparacaine drops were applied in bilateral eyes and examination was performed afterwards. the eye exam is unremarkable except for bilateral conjunctival injections. wood's lamp indicative of small, pinpoint areas of increased fluorescence stain uptake. I suspect the patient to have UV keratitis secondary to arc welding exposure. Patient was given a Tylenol 3 starter pack. Patient will also be discharged with artificial tears. Patient advised to wear protective eyewear and rest his eyes for the next few days. The eye pain will resolve on its own. Patient advised to follow-up with ophthalmology. Strict return parameters were thoroughly discussed with patient who is agreeable and understanding. Case discussed with physician. (Cas Carter) I was available for consultation in the emergency department. The history and physical exam were done by the midlevel provider. I was consulted for this patient's care. I reviewed the case with the midlevel provider and based on their presentation of the patient, I agree with the assessment, medical decision making and plan of care as documented. Chart was dictated using [employer] dictation software. Attempts were made to correct any dictation errors however some typographical errors may persist. (Bette Duggan) Disposition Is patient prescribed a controlled substance at d/c from ED?: No Time of Disposition: 22:44 <Cas Carter - Last Filed: 03/08/19 00:30> <Bette Duggan - Last Filed: 03/08/19 13:21> Clinical Impression: Welders' keratitis Disposition: HOME SELF-CARE Condition: Stable Instructions (If sedation given, give patient instructions): Eye Lubricant (Into the eye) Additional Instructions: Please take prescribed medication as directed. Please follow with ophthalmology. Position to emergency department if symptoms worsen. Please use eye protection when welding. Rest eyes for the next few days. Prescriptions: Artificial Tears-Hypromellose [Artificial Tear Drops] 1 drops BOTH EYES TID #1 bottle Referrals: Kin Mar MD [Primary Care Provider] - 1-2 days Ulysses Gómez MD [STAFF PHYSICIAN] - 1-2 days
== END 2019-03-07 23:02 | disposition home or self-care (01) ==
LOC: EC 20:46
DX: H16.133 Photokeratitis, bilateral (principal); F17.200 Nicotine dependence, unspecified, uncomplicated; W89.8XXA Exposure to other man-made visible and ultraviolet light, initial encounter
CPT/HCPCS: 99283

== ENCOUNTER 2019-10-06 21:03 | Emergency (ER) | payer OTHER ==
[2019-10-06 21:17] VITALS: BP 132/69; RESP 18
[2019-10-06] MEDS ORDERED: IPRATROPIUM-ALBUTEROL 3 ML NEB INHALATION STA (21:36)
[2019-10-06] MEDS ORDERED: IBUPROFEN 600 MG TAB PO STA (21:36)
[2019-10-06] MEDS ORDERED: ACETAMINOPHEN TAB 325 MG TAB PO STA (21:36)
[2019-10-06] MEDS ORDERED: predniSONE 50 MG TAB PO STA (21:36)
--- NOTE | 2019-10-06 21:57 | ED ---
General Adult HPI - General Chief complaint: Upper Respiratory Infection Stated complaint: SIMONE Time Seen by Provider: 10/06/19 21:22 Source: patient, RN notes reviewed, old records reviewed Mode of arrival: ambulatory Limitations: no limitations - History of Present Illness Initial comments: 39-year-old male patient passed history of asthma, hypertension dugger for chief complaint today is cough congestion nausea vomiting fevers, waxing and waning headaches. Believes that his asthma slightly exacerbated. Denies any other complaints. Systemic: Pt denies fatigue, rash. Pt denies weakness, night sweats, weight loss. Neuro: Pt denies headache, visual disturbances, syncope or pre-syncope. HEENT: Pt denies ocular discharge or irritation, otalgia, rhinorrhea, pharyngitis or notable lymphadenopathy. Cardiopulmonary: Pt denies chest pain, SOB, heart palpitations, dyspnea on exertion. Abdominal/GI: Pt denies abdominal pain, n/v/d. : Pt denies dysuria, burning w/ urination, frequency/urgency. Denies new onset urinary or bowel incontinence. MSK: Pt denies myalgia, loss of strength or function in extremities. Neuro: Pt denies new onset weakness, paresthesias. - Related Data Previous Rx's Medication Instructions Recorded Albuterol Inhaler [Ventolin Hfa 1 - 2 puff INHALATION Q4HR PRN #1 05/02/18 Inhaler] inhaler Ondansetron Odt [Zofran Odt] 4 mg PO Q8HR PRN #12 tab 07/03/18 predniSONE 50 mg PO DAILY #5 tablet 07/03/18 Albuterol Inhaler [Ventolin Hfa 1 - 2 puff INHALATION Q4H PRN 30 09/03/18 Inhaler] Days #1 inhaler Albuterol Inhaler [Ventolin Hfa 1 - 2 puff INHALATION RT-Q6H PRN 7 12/07/18 Inhaler] Days #1 inhaler Artificial Tears-Hypromellose 1 drops BOTH EYES TID #1 bottle 03/07/19 [Artificial Tear Drops] Albuterol Inhaler [Ventolin Hfa 1 - 2 puff INHALATION Q4-6H PRN #1 10/06/19 Inhaler] inhaler Oseltamivir [Tamiflu] 75 mg PO Q12HR 5 Days #10 cap 10/06/19 predniSONE 50 mg PO DAILY #4 tab 10/06/19 Allergies Allergy/AdvReac Type Severity Reaction Status Date / Time No Known Allergies Allergy Verified 10/06/19 21:15 Review of Systems ROS Statement: Those systems with pertinent positive or pertinent negative responses have been documented in the HPI. ROS Other: All systems not noted in ROS Statement are negative. Past Medical History Past Medical History: Asthma, Hypertension History of Any Multi-Drug Resistant Organisms: None Reported Past Surgical History: Orthopedic Surgery Additional Past Surgical History / Comment(s): tendon repair right hand. Past Psychological History: No Psychological Hx Reported Smoking Status: Current every day smoker Past Alcohol Use History: Rare Past Drug Use History: None Reported General Exam - General Exam Comments Initial Comments: Constitutional: NAD, AOX3, Pt has pleasant affect. HEENT: NC/AT, trachea midline, neck supple, no lymphadenopathy. Posterior pharynx non erythematous, without exudates. External ears appear normal, without discharge. Mucous membranes moist. Eyes PERRLA, EOM intact. There is no scleral icterus. No pallor noted. Cardiopulmonary: RRR, no murmurs, rubs or gallops, no JVD noted. Lungs CTAB in anterior and posterior gerard. No peripheral edema. Abdominal exam: Abdomen soft and non-distended. Abdomen non-tender to palpation in all 4 quadrants. Bowel sounds active in LLQ. No hepatosplenomegaly. No ecchymosis Neuro: CN II-XII grossly intact. No nuchal rigidity. No raccon eyes, no olvera sign, no hemotympanum. No cervical spinal tenderness. MSK: No posterior calf tenderness bilaterally, homans sign negative bilaterally. Posterior tibialis and radial pulse +2 bilaterally. Sensation intact in upper and lower extremities. Full active ROM in upper and lower extremities, 5/5 stregnth. Limitations: no limitations Course Vital Signs 10/06/19 10/06/19 10/06/19 21:15 21:54 22:03 Temperature 100.8 F H Pulse Rate 96 91 91 Respiratory 18 Rate Blood Pressure 132/69 O2 Sat by Pulse 98 Oximetry Medical Decision Making - Medical Decision Making 39-year-old male patient passed history of asthma, hypertension dugger for chief complaint today is cough congestion nausea vomiting fevers, waxing and waning headaches. Believes that his asthma slightly exacerbated. Denies any other complaints. Patient also has with mild fever, patient has her antibiotic. Physical exam displayed mild wheezing anterior lung gerard, patient mentioned a breathing treatment, wheezing resolved. Laboratory investigations revealed influenza B to be positive. Chest x-ray negative. Patient reports that symptoms have been ongoing for 4 days, discussed Tamiflu and that the ideal therapy when he was within 48 hours. Patient does request establishing an Tamiflu. Patient discharged with Tamiflu steroids breathing treatments, follow- up with primary care for asthma will return to ED if condition worsens. Case discussed with Dr. Bagley. - Lab Data Lab Results 10/06/19 Range/Units 21:45 Influenza Type A RNA Not Detected (Not Detectd) Influenza Type B (PCR) Detected H (Not Detectd) Disposition Clinical Impression: Influenza B, Asthma exacerbation Disposition: HOME SELF-CARE Condition: Stable Instructions (If sedation given, give patient instructions): Asthma (ED), Influenza (ED) Additional Instructions: Follow-up with primary care provider tomorrow. Take medications as directed. Use breathing treatments as needed for wheezing. Return to ED if condition worsens. Prescriptions: predniSONE 50 mg PO DAILY #4 tab Oseltamivir [Tamiflu] 75 mg PO Q12HR 5 Days #10 cap Albuterol Inhaler [Ventolin Hfa Inhaler] 1 - 2 puff INHALATION Q4-6H PRN #1 inhaler PRN Reason: Cough Is patient prescribed a controlled substance at d/c from ED?: No Referrals: Kin Mar MD [Primary Care Provider] - 1-2 days
--- NOTE | 2019-10-06 22:04 | XR ---
EXAMINATION TYPE: XR chest 2V DATE OF EXAM: 10/06/2019 COMPARISON: 12/07/2018 HISTORY: Asthma Short of breath. Cough. TECHNIQUE: 2 views FINDINGS: Heart and mediastinum are normal. Lungs are clear. Diaphragm is normal. Bony thorax appears normal. IMPRESSION: Normal chest. No change.
[2019-10-06] MEDS ORDERED: OSELTAMIVIR 75 MG CAP PO STA (22:20)
[2019-10-06 23:00] VITALS: PULSE 90; TEMP 98.9
== END 2019-10-06 23:00 | disposition home or self-care (01) ==
LOC: EC 21:03
DX: J10.1 Influenza due to other identified influenza virus with other respiratory manifestations (principal); J45.901 Unspecified asthma with (acute) exacerbation; I10 Essential (primary) hypertension; F17.200 Nicotine dependence, unspecified, uncomplicated
CPT/HCPCS: 94640; 87502; 71046; 99285; J7512

== ENCOUNTER 2020-04-22 16:11 | Emergency (ER) | payer BC, OTHER ==
[2020-04-22 16:18] VITALS: BP 166/92; PULSE 96; RESP 18; TEMP 98.4
[2020-04-22 16:56] LABS: Appearance,Urine Clear (Clear); Bilirubin,Urine Negative (Negative); Blood,Urine Negative (Negative); Color,Urine Yellow; Glucose,Urine (UA) Negative (Negative); Ketones,Urine Negative (Negative); Leukocyte Esterase,Urine Trace (Negative); Mucus,Urine Rare /hpf; Nitrite,Urine Negative (Negative); PH, Urine 5.5 (5.0-8.0); Protein,Urine Trace (Negative); RBC,Urine 4 /hpf (0-5); Specific Gravity,Urine 1.024 (1.001-1.035); Urobilinogen,Urine <2.0 mg/dL (<2.0); WBC,Urine 9 /hpf (0-5)
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
[2020-04-22] MEDS ORDERED: cefTRIAXone 250 MG VIAL IM STA (17:01)
[2020-04-22] MEDS ORDERED: AZITHROMYCIN 500 MG TAB PO STA (17:01)
== END 2020-04-22 17:31 | disposition home or self-care (01) ==
LOC: EC 16:11
DX: S43.004A Unspecified dislocation of right shoulder joint, initial encounter (principal); R20.2 Paresthesia of skin; A64 Unspecified sexually transmitted disease; J45.909 Unspecified asthma, uncomplicated; F17.200 Nicotine dependence, unspecified, uncomplicated; Z76.0 Encounter for issue of repeat prescription; X58.XXXA Exposure to other specified factors, initial encounter
CPT/HCPCS: 81001; 87491; 87591; 99283; 96372; J0696

== ENCOUNTER 2020-10-04 02:30 | Emergency (ER) | payer BC, OTHER ==
[2020-10-04] MEDS ORDERED: SUCCINYLCHOLINE CHLORIDE VIAL 200 MG/10 ML VIAL IV STA (02:41)
[2020-10-04] MEDS ORDERED: ETOMIDATE 2 MG/ML 10 ML VIAL IVP STA (02:42)
[2020-10-04] MEDS ORDERED: LORazepam 2 MG/ML INJ IV STA (02:49)
[2020-10-04] MEDS ORDERED: MORPHINE SULFATE 4 MG/ML SYRINGE IV STA (02:49)
[2020-10-04 02:58] LABS: HCT 53.9 % (39.0-53.0); HGB 16.9 gm/dL (13.0-17.5); Hypochromasia Moderate; MCH 23.5 pg (25.0-35.0); MCHC 31.4 g/dL (31.0-37.0); MCV 74.8 fL (80.0-100.0); Mean Platelet Volume 6.6; Microcytosis Slight; Platelet Count 313 k/uL (150-450); RDW 14.6 % (11.5-15.5); WBC 12.8 k/uL (3.8-10.6)
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
[2020-10-04] MEDS ORDERED: propofoL 50 ML IV ONE (03:01)
--- NOTE | 2020-10-04 03:05 | XR ---
EXAM: XR Chest, 1 View CLINICAL HISTORY: ITS.REASON XR Reason: trauma TECHNIQUE: Frontal view of the chest. COMPARISON: No relevant prior studies available. FINDINGS: Lungs: Small amount of interstitial opacities in both lungs, more on the right. Pleural space: Unremarkable. No pneumothorax. Heart: Unremarkable. No cardiomegaly. Mediastinum: No widening. Bones/joints: Unremarkable. Tubes, lines and devices: Tip of endotracheal tube is in the bowel 6 cm above the tatyana. Tip of enteric tube is in the body the stomach. IMPRESSION: 1. Tip of endotracheal tube is in the bowel 6 cm above the tatyana. 2. Small amount of interstitial opacities in both lungs, more on the right, can be due to underinflation versus mild pulmonary edema versus pulmonary contusion.
[2020-10-04 03:12] LABS: Albumin 5.2 g/dL (3.5-5.0); Calcium 9.6 mg/dL (8.4-10.2); Potassium 4.3 mmol/L (3.5-5.1); Total Bilirubin 0.4 mg/dL (0.2-1.3)
[2020-10-04 03:12] LABS: Allen Test Performed? Yes
[2020-10-04 03:19] LABS: Amorphous Sediment,Urine Rare /hpf; Appearance,Urine Clear (Clear); Bilirubin,Urine Negative (Negative); Blood,Urine Trace (Negative); Color,Urine Light Yellow; Glucose,Urine (UA) Negative (Negative); Ketones,Urine Trace (Negative); Leukocyte Esterase,Urine Negative (Negative); Mucus,Urine Rare /hpf; Nitrite,Urine Negative (Negative); PH, Urine 5.5 (5.0-8.0); Protein,Urine 1+ (Negative); RBC,Urine <1 /hpf (0-5); Specific Gravity,Urine 1.011 (1.001-1.035); Urobilinogen,Urine <2.0 mg/dL (<2.0); WBC,Urine <1 /hpf (0-5)
[2020-10-04] MEDS ORDERED: SODIUM CHLORIDE 0.9% 1,000 ML IV ONE (03:19)
[2020-10-04] MEDS ORDERED: DIPH,PERTUS(ACELL)TETVAC-LF 0.5 ML VIAL IM ONE (03:19)
[2020-10-04 03:21] LABS: Amphetamine Screen,Urine Not Detected (NotDetected); Barbiturate Screen,Urine Not Detected (NotDetected); Benzodiazepines Screen,Urine Not Detected (NotDetected); Cocaine Screen,Urine Not Detected (NotDetected); Methadone Screen, Urine Not Detected (NotDetected); Opiate Screen,Urine Not Detected (NotDetected); Oxycodone Screen, Urine Not Detected (NotDetected); Phencyclidine Screen,Urine Not Detected (NotDetected); Tricyclic Antidepressant,Urine Not Detected (NotDetected); Urn Cannabinoid Scrn Not Detected (NotDetected)
[2020-10-04 03:22] LABS: Prothrombin Time 10.7 sec (9.0-12.0)
[2020-10-04 03:24] LABS: RBC 7.28 m/uL (4.30-5.90)
[2020-10-04] MEDS ORDERED: HYDROmorphone 1 MG/ML 1 ML SYRINGE IVP STA (03:28)
[2020-10-04] MEDS ORDERED: HYDROmorphone 1 MG/ML 1 ML SYRINGE IVP PRN (03:29)
[2020-10-04 03:30] LABS: Partial Thromboplastin Time 19.5 sec (22.0-30.0)
--- NOTE | 2020-10-04 03:38 | CT ---
EXAM: CT Head Without Intravenous Contrast CLINICAL HISTORY: ITS.REASON CT Reason: unresponsive TECHNIQUE: Axial computed tomography images of the head/brain without intravenous contrast. CTDI is 30.085 mGy and DLP is 738.8 mGy-cm. This CT exam was performed using one or more of the following dose reduction techniques: automated exposure control, adjustment of the mA and/or kV according to patient size, and/or use of iterative reconstruction technique. Coronal and sagittal reformatted images were created and reviewed. COMPARISON: No relevant prior studies available. FINDINGS: Brain: Unremarkable. No hemorrhage. No significant white matter disease. No edema. Ventricles: Unremarkable. No ventriculomegaly. Bones/joints: Unremarkable. No acute fracture. Soft tissues: Unremarkable. Sinuses: Moderate sinus disease. Mastoid air cells: Unremarkable as visualized. No mastoid effusion. IMPRESSION: No acute findings in the head/brain. EXAM: CT Cervical Spine Without Intravenous Contrast CLINICAL HISTORY: ITS.REASON CT Reason: unresponsive TECHNIQUE: Axial computed tomography images of the cervical spine without intravenous contrast. CTDI is 30.085 mGy and DLP is 738.8 mGy-cm. This CT exam was performed using one or more of the following dose reduction techniques: automated exposure control, adjustment of the mA and/or kV according to patient size, and/or use of iterative reconstruction technique. Coronal and sagittal reformatted images were created and reviewed. COMPARISON: No relevant prior studies available. FINDINGS: Artifacts: Motion artifact slightly decreases the sensitivity of this exam. Vertebrae: Unremarkable. No fracture. Discs/spinal canal/neural foramina: Mild to moderate degenerative disc disease. Soft tissues: Unremarkable. Tubes, lines and devices: Enteric and endotracheal tubes are noted. IMPRESSION: No fracture or subluxation
[2020-10-04 03:39] LABS: ABG Base Excess -5.4 mmol/L; ABG HCO3 22 mmol/L (21-25); ABG PCO2 54 mmHg (35-45); ABG PH 7.23 (7.35-7.45); ABG PO2 >400 mmHg (83-108); ABG TCO2 24 mmol/L (19-24)
[2020-10-04 03:44] LABS: Band Neutrophils % 1 %; Eosinophils # (M) 0.13 k/uL (0-0.7); Lymphocytes # (M) 8.19 k/uL (1.0-4.8); Metamyelocytes # (M) 0.13 k/uL (0); Metamyelocytes % 1 %; Monocytes # (M) 0.38 k/uL (0-1.0); Neutrophils % (M) 32 %; Nucleated Red Blood Cells 0 /100 WBC (0-0); Total Cells Counted 200
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
[2020-10-04 06:34] VITALS: BP 133/81; PULSE 90; RESP 16; TEMP 97.5
== END 2020-10-04 03:45 | disposition other institution (70) ==
LOC: MERGE 02:30 → EC 02:30
DX: T58.91XA Toxic effect of carbon monoxide from unspecified source, accidental (unintentional), initial encounter (principal); T59.811A Toxic effect of smoke, accidental (unintentional), initial encounter; F10.129 Alcohol abuse with intoxication, unspecified; T31.0 Burns involving less than 10% of body surface; Z23 Encounter for immunization; X00.0XXA Exposure to flames in uncontrolled fire in building or structure, initial encounter
CPT/HCPCS: 36415; 36600; 94002; 93005; 86900; 86901; 80053; 82375; 82805; 83605; 84484; 85025; 85610; 85730; 86850; 81001; 80306; 80320; 71045; 72125; 70450; 90715; 99291; 31500; 96365; 96375 ×3; 90471; J0330; J2060; J2270; J1170; J2704

== ENCOUNTER 2020-10-13 07:47 | Emergency (ER) | payer BC, OTHER ==
[2020-10-13 07:51] VITALS: RESP 18; TEMP 98.3
--- NOTE | 2020-10-13 09:17 | US ---
EXAMINATION TYPE: US venous doppler duplex UE RT DATE OF EXAM: 10/13/2020 COMPARISON: NONE CLINICAL HISTORY: 40-year-old male arm swelling. Patient had IV in right arm last week, right arm nikolai n SIDE PERFORMED: Right TECHNIQUE: GRAYSCALE, color doppler, spectral doppler imaging performed of the deep veins of the upp er extremities. Findings: Sales Account Director notes: Right Arm: Appears negative for DVT. Exam is positive for thrombus within superfic ial cephalic vein from mid upper arm to mid lower arm IMPRESSION: 1. No evidence for DVT within the right upper extremity. 2. However, the exam is positive for SVT of the cephalic vein.
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
[2020-10-13 10:31] VITALS: BP 160/82; PULSE 84
== END 2020-10-13 10:31 | disposition home or self-care (01) ==
LOC: EC 07:47
DX: I80.8 Phlebitis and thrombophlebitis of other sites (principal); K04.7 Periapical abscess without sinus; R03.0 Elevated blood-pressure reading, without diagnosis of hypertension; J45.909 Unspecified asthma, uncomplicated; Z79.51 Long term (current) use of inhaled steroids; Z87.891 Personal history of nicotine dependence
CPT/HCPCS: 99283